=== PATIENT | female | born 1980 | race Caucasian/White ===

== ENCOUNTER 2023-07-31 13:52 | Emergency (ER) | payer MEDICAID, MEDICARE ==
[~2023-07-31] VITALS: Ht 162.6 cm; Wt 84.9 kg
[2023-07-31 13:53] VITALS: BP 136/83; TEMP 97; O2SAT 97
[2023-07-31] MEDS ORDERED: PRED5TA (14:22)
[2023-07-31] MEDS ORDERED: OXYC10TA12 (14:22)
[2023-07-31] MEDS ORDERED: FENT1DIS14 (14:22)
[2023-07-31] MEDS ORDERED: ARIP1TAB4 (14:22)
[2023-07-31] MEDS ORDERED: DULO1CAP6 (14:22)
== END 2023-07-31 15:06 | disposition left against medical advice (07) ==
LOC: M ED 13:52
DX: Z53.21 Procedure and treatment not carried out due to patient leaving prior to being seen by health care provider (principal)

== ENCOUNTER → 2023-07-31 | Outpatient (CLI) | payer MEDICARE, MEDICAID ==
[~2023-07-31] MED LIST: ARIP1TAB4; DULO1CAP6; FENT1DIS14; OXYC10TA12; PRED5TA
== END ==
LOC: M RAD 15:38
PROVIDERS: ATTEND Physician Assistant Medical
DX: M71.21 Synovial cyst of popliteal space [Baker], right knee (principal)

== ENCOUNTER 2023-08-01 20:57 | Emergency (ER) | payer MEDICARE, MEDICAID ==
[~2023-08-01] VITALS: Ht 167.6 cm; Wt 67.0 kg
[2023-08-01] MEDS: IPRATROPIUM 0.5MG/ALBUTEROL 2.5MG INH SOL UD 3ML (DUONEB) NEB ONE (21:44)
[2023-08-01 22:07] LABS: BASO # 0.1 10^3/uL (0.0-0.2); BASO % 0.5 % (0.0-1.0); EOS # 0.3 10^3/uL (0.0-0.5); EOS % 2.2 % (0.0-3.0); HEMATOCRIT 45.6 % (36.0-47.0); HEMOGLOBIN 15.6 g/dl (12.0-15.5); LYMPH # 2.8 10^3/uL (1.5-5.0); LYMPH % 19.9 % (24.0-44.0); MEAN CORPUSCULAR HEMOGLOBIN 31.5 pg (27.0-33.0); MEAN CORPUSCULAR HGB CONC 34.2 g/dl (32.0-36.5); MEAN CORPUSCULAR VOLUME 91.9 fl (80.0-96.0); MONO # 0.9 10^3/uL (0.0-0.8); MONO % 6.1 % (2.0-8.0); NEUTROPHILS # 10.1 10^3/uL (1.5-8.5); NEUTROPHILS % 70.9 % (36.0-66.0); PLATELET COUNT, AUTOMATED 350 10^3/uL (150-450); RED BLOOD COUNT 4.96 10^6/uL (4.00-5.40); WHITE BLOOD COUNT 14.2 10^3/uL (4.0-10.0)
[2023-08-01 22:20] LABS: INR 0.92; PROTHROMBIN TIME 12.1 SECONDS (12.5-14.5)
[2023-08-01 22:39] LABS: CK-MB VALUE MASS < 1.0 NG/ML (<3.6)
[2023-08-01 22:57] LABS: ALBUMIN 3.9 G/DL (3.2-5.2); ALKALINE PHOSPHATASE 66 U/L (46-116); ALT/SGPT 13 U/L (7.0-40); AST/SGOT 31 U/L (<34); BILIRUBIN,DIRECT < 0.1 MG/DL (<0.4); BILIRUBIN,TOTAL 0.2 MG/DL (0.3-1.2); BLOOD UREA NITROGEN 14 MG/DL (9-23); CALCIUM LEVEL 9.4 MG/DL (8.5-10.1); CARBON DIOXIDE LEVEL 27 MMOL/L (20-31); CHLORIDE LEVEL 106 MMOL/L (98-107); CPK CREATINE PHOSPHOKINASE 101 U/L (34-145); CREATININE FOR GFR 0.47 MG/DL (0.55-1.30); GLOMERULAR FILTRATION RATE > 60.0 (>58); GLUCOSE, FASTING 103 MG/DL (60-100); MB/CK RELATIVE INDEX 0.99 (< OR =4); SODIUM LEVEL 138 MMOL/L (136-145); TOTAL PROTEIN 6.7 G/DL (5.7-8.2)
[2023-08-01] MEDS ORDERED: ISOVUE-370 76% 100ML VIAL As Ordered ONE (23:02)
[2023-08-01 23:42] LABS: CK-MB VALUE MASS < 1.0 NG/ML (<3.6)
[2023-08-01 23:44] LABS: CPK CREATINE PHOSPHOKINASE 77 U/L (34-145); MB/CK RELATIVE INDEX 1.29 (< OR =4); POTASSIUM SERUM 4.3 MMOL/L (3.5-5.1)
[2023-08-02 01:13] LABS: CK-MB VALUE MASS < 1.0 NG/ML (<3.6)
[2023-08-02 01:15] VITALS: TEMP 98.4
[2023-08-02 01:41] LABS: CPK CREATINE PHOSPHOKINASE 67 U/L (34-145); MB/CK RELATIVE INDEX 1.49 (< OR =4)
[2023-08-02 01:45] VITALS: BP 124/76; O2SAT 96
== END 2023-08-02 02:10 | disposition left against medical advice (07) ==
LOC: M ED 20:57
DX: R06.02 Shortness of breath (principal); M54.50 Low back pain, unspecified; F17.210 Nicotine dependence, cigarettes, uncomplicated; Z88.0 Allergy status to penicillin; Z79.899 Other long term (current) drug therapy; Z79.52 Long term (current) use of systemic steroids; Z53.9 Procedure and treatment not carried out, unspecified reason
CPT/HCPCS: 36415; 70450; 71275; 73564; 80048; 80076; 82550; 82553; 83880; 84132; 84443; 84484; 85025; 85610; 87040; 87486; 87581; 87633; 87798; 93005; 93041; 93971; 94640; 94760; 99285; Q9967

== ENCOUNTER 2023-12-27 17:34 | Emergency (ER) | payer MEDICAID, MEDICARE ==
[~2023-12-27 17:34] MED LIST changes: +PRED20TA PO
[2023-12-27] MEDS ORDERED: NALOXONE 2MG/2ML SYRINGE As Ordered ONE (17:46)
[2023-12-27 17:49] VITALS: TEMP 98.4
[2023-12-27 18:17] LABS: BASO # 0.1 10^3/uL (0.0-0.2); BASO % 0.6 % (0.0-1.0); EOS # 0.2 10^3/uL (0.0-0.5); EOS % 2.3 % (0.0-3.0); HEMATOCRIT 41.5 % (36.0-47.0); HEMOGLOBIN 13.5 g/dl (12.0-15.5); LYMPH # 2.3 10^3/uL (1.5-5.0); LYMPH % 26.7 % (24.0-44.0); MEAN CORPUSCULAR HEMOGLOBIN 29.3 pg (27.0-33.0); MEAN CORPUSCULAR HGB CONC 32.5 g/dl (32.0-36.5); MONO # 0.5 10^3/uL (0.0-0.8); MONO % 5.4 % (2.0-8.0); NEUTROPHILS # 5.6 10^3/uL (1.5-8.5); NEUTROPHILS % 64.4 % (36.0-66.0); PLATELET COUNT, AUTOMATED 275 10^3/uL (150-450); RED BLOOD COUNT 4.61 10^6/uL (4.00-5.40); WHITE BLOOD COUNT 8.7 10^3/uL (4.0-10.0)
[2023-12-27 18:37] LABS: CPK CREATINE PHOSPHOKINASE 194 U/L (34-145); SALICYLATE LEVEL < 3.0 MG/DL (<30)
[2023-12-27 18:55] LABS: ETHYL ALCOHOL (ETHANOL) 0.276 % (0.000-0.010)
[2023-12-27 19:02] LABS: ALBUMIN 3.8 G/DL (3.2-5.2); ALKALINE PHOSPHATASE 60 U/L (46-116); ALT/SGPT 26 U/L (7.0-40); AST/SGOT 19 U/L (<34); BILIRUBIN,DIRECT < 0.1 MG/DL (<0.4); BILIRUBIN,TOTAL < 0.2 MG/DL (0.3-1.2); BLOOD UREA NITROGEN 8 MG/DL (9-23); CALCIUM LEVEL 8.3 MG/DL (8.5-10.1); CARBON DIOXIDE LEVEL 29 MMOL/L (20-31); CHLORIDE LEVEL 106 MMOL/L (98-107); CREATININE FOR GFR 0.65 MG/DL (0.55-1.30); GLOMERULAR FILTRATION RATE > 60.0 (>58); GLUCOSE, FASTING 91 MG/DL (60-100); POTASSIUM SERUM 3.8 MMOL/L (3.5-5.1); SODIUM LEVEL 140 MMOL/L (136-145); THYROID STIMULATING HORMONE 0.676 uIU/ML (0.55-4.78); TOTAL PROTEIN 6.5 G/DL (5.7-8.2)
[2023-12-27 19:46] LABS: AMPHETAMINES LEVEL URINE NEGATIVE (NEGATIVE); BARBITURATES URINE NEGATIVE (NEGATIVE); BENZODIAZEPINES URINE NEGATIVE (NEGATIVE); COCAINE METABOLITE URINE NEGATIVE (NEGATIVE); METHADONE URINE NEGATIVE (NEGATIVE); OPIATES URINE NEGATIVE (NEGATIVE); PHENCYCLIDINE URINE NEGATIVE (NEGATIVE)
[2023-12-27 19:48] LABS: CANNABINOIDS URINE POSITIVE (NEGATIVE)
[2023-12-27] MEDS: ACETAMINOPHEN 325 MG TAB PO ONE (20:00)
[2023-12-27] MEDS: NS 1,000 ML IV ONE (20:00)
[2023-12-27 21:45] VITALS: BP 111/64; O2SAT 94
== END 2023-12-27 21:49 | disposition home or self-care (01) ==
LOC: M ED 17:34 → EDBD 17:34 → M ED 21:49
DX: F10.129 Alcohol abuse with intoxication, unspecified (principal); I45.19 Other right bundle-branch block; J45.909 Unspecified asthma, uncomplicated; M06.9 Rheumatoid arthritis, unspecified; C90.01 Multiple myeloma in remission; Z91.048 Other nonmedicinal substance allergy status; Z88.0 Allergy status to penicillin; Z79.52 Long term (current) use of systemic steroids; Z79.899 Other long term (current) drug therapy

== ENCOUNTER 2024-04-09 12:33 | Emergency (ER) | payer MEDICARE ==
[~2024-04-09] VITALS: Ht 160 cm; Wt 86.6 kg
[2024-04-09] MEDS ORDERED: ACET32TAB PO (12:39)
[2024-04-09] MEDS: ACETAMINOPHEN 500 MG TAB PO ONE (13:45)
[2024-04-09] MEDS: methylPREDNISolone 125MG 2ML VIAL IV ONE (13:47)
[2024-04-09] MEDS: IPRATROPIUM 0.5MG/ALBUTEROL 2.5MG INH SOL UD 3ML (DUONEB) NEB ONE (13:50)
[2024-04-09 13:52] LABS: BASO % 0.6 % (0.0-1.0); EOS # 0.2 10^3/uL (0.0-0.5); EOS % 2.2 % (0.0-3.0); HEMATOCRIT 43.5 % (36.0-47.0); HEMOGLOBIN 14.2 g/dl (12.0-15.5); LYMPH # 0.6 10^3/uL (1.5-5.0); LYMPH % 8.2 % (24.0-44.0); MEAN CORPUSCULAR HEMOGLOBIN 29.6 pg (27.0-33.0); MEAN CORPUSCULAR HGB CONC 32.6 g/dl (32.0-36.5); MEAN CORPUSCULAR VOLUME 90.8 fl (80.0-96.0); MONO # 0.6 10^3/uL (0.0-0.8); MONO % 8.5 % (2.0-8.0); NEUTROPHILS # 5.4 10^3/uL (1.5-8.5); NEUTROPHILS % 80.1 % (36.0-66.0); PLATELET COUNT, AUTOMATED 214 10^3/uL (150-450); RED BLOOD COUNT 4.79 10^6/uL (4.00-5.40); WHITE BLOOD COUNT 6.7 10^3/uL (4.0-10.0)
[2024-04-09] MEDS: DEXTROMETHORPHAN 60MG/10ML SUSP 90ML BTL(DELSYM) PO ONE (14:05)
[2024-04-09] MEDS ORDERED: VENTAER INH (14:07)
[2024-04-09] MEDS ORDERED: PRED20TA PO (14:07)
[2024-04-09] MEDS ORDERED: OSEL75CA2 PO (14:07)
[2024-04-09] MEDS: OSELTAMIVIR PHOSPHATE 75 MG CAP (TAMIFLU) PO ONE (14:22)
[2024-04-09 14:31] LABS: PROCALCITONIN 0.06 ng/ml
[2024-04-09 14:36] LABS: ALBUMIN 3.5 G/DL (3.2-5.2); ALKALINE PHOSPHATASE 87 U/L (35-104); ALT/SGPT 37 U/L (7.0-40); AST/SGOT 41 U/L (<34); BILIRUBIN,DIRECT < 0.1 MG/DL (<0.4); BILIRUBIN,TOTAL 0.2 MG/DL (0.3-1.2); BLOOD UREA NITROGEN 10 MG/DL (9-23); CALCIUM LEVEL 9.4 MG/DL (8.5-10.1); CARBON DIOXIDE LEVEL 28 MMOL/L (20-31); CHLORIDE LEVEL 105 MMOL/L (98-107); CREATININE FOR GFR 0.54 MG/DL (0.55-1.30); GLOMERULAR FILTRATION RATE > 60.0 (>58); GLUCOSE, FASTING 109 MG/DL (60-100); MAGNESIUM LEVEL 1.9 MG/DL (1.8-2.4); POTASSIUM SERUM 4.5 MMOL/L (3.5-5.1); SODIUM LEVEL 139 MMOL/L (136-145); TOTAL PROTEIN 6.8 G/DL (5.7-8.2)
[2024-04-09 15:00] VITALS: BP 156/96; TEMP 97.6; O2SAT 96
== END 2024-04-09 15:01 | disposition home or self-care (01) ==
LOC: M ED 12:33
DX: J09.X2 Influenza due to identified novel influenza A virus with other respiratory manifestations (principal); J45.901 Unspecified asthma with (acute) exacerbation; F17.200 Nicotine dependence, unspecified, uncomplicated; F12.10 Cannabis abuse, uncomplicated; M06.9 Rheumatoid arthritis, unspecified; C90.00 Multiple myeloma not having achieved remission; K42.9 Umbilical hernia without obstruction or gangrene; Z88.0 Allergy status to penicillin; Z91.048 Other nonmedicinal substance allergy status; Z79.52 Long term (current) use of systemic steroids; Z79.1 Long term (current) use of non-steroidal anti-inflammatories (NSAID); Z79.899 Other long term (current) drug therapy
CPT/HCPCS: 71046; 80048; 80076; 83735; 84145; 85025; 87486; 87581; 87633; 87798; 93005; 96374; 99284; J2919

== ENCOUNTER 2024-06-16 18:15 | Emergency (ER) | payer MEDICARE ==
[~2024-06-16] VITALS: Ht 162.6 cm; Wt 90.0 kg
[~2024-06-16 18:15] MED LIST changes: +ACET32TAB PO; +OSEL75CA2 PO; +VENTAER INH
[2024-06-16 18:18] VITALS: BP 138/82; O2SAT 98
[2024-06-16 18:19] VITALS: TEMP 99.1
== END 2024-06-17 00:15 | disposition left against medical advice (07) ==
LOC: M ED 18:15
DX: Z53.21 Procedure and treatment not carried out due to patient leaving prior to being seen by health care provider (principal)